=== PATIENT | female | born 1955 | race Hispanic/Latino ===

== ENCOUNTER 2025-04-14 10:51 | Outpatient (CLI) | payer BC ==
[2025-04-14 12:08] LABS: #Basophils 0.05 10x3/uL (0.0-0.2); #Eosinophils 0.17 10x3/uL (0.0-0.5); #Monocytes 0.37 10x3/uL (0.0-1.1); #Neutrophils 3.87 10x3/uL (1.5-8.4); %Basophils 0.7 % (0.0-2.0); %Eosinophils 2.4 % (0.0-6.0); %Lymphocytes 37.2 % (18.0-47.0); %Monocytes 5.2 % (0.0-10.0); %Neutrophils 54.1 % (40.0-75.0); Hematocrit 31.5 % (34.9-44.5); Hemoglobin 10.5 g/dL (12.0-15.5); Mean Corpuscular Hemoglobin 30.5 pg (27.0-33.0); Mean Corpuscular Volume 91.6 fL (81.6-98.3); Platelet Count 233 10x3/uL (150-450); Red Blood Cell (RBC) Count 3.44 10x6/uL (3.90-5.03); White Blood Cell (WBC) Count 7.15 10x3/uL (3.5-10.5)
[2025-04-14 12:44] LABS: Anion Gap 13 mmol/L (10-20); BUN (Urea Nitrogen) 18 mg/dL (9.8-20.1); Calc. Creatinine Clearance 0 mL/min (70-130); Calcium 9.1 mg/dL (7.8-10.44); Carbon Dioxide 24 mmol/L (23-31); Chloride 110 mmol/L (98-107); Glucose 113 mg/dL (80-115); Potassium 4.2 mmol/L (3.5-5.1); Sodium 143 mmol/L (136-145)
== END 2025-04-14 10:52 | disposition home or self-care (01) ==
LOC: CSHLAB 10:51
PROVIDERS: ATTEND Surgery
DX: Z01.818 Encounter for other preprocedural examination (principal); K43.9 Ventral hernia without obstruction or gangrene
CPT/HCPCS: 80048; 85025; 93005; 93010

== ENCOUNTER 2025-04-18 06:58 | Day surgery (SDC) | payer BC ==
[2025-04-14 11:21] VITALS: BMI 26.9
[2025-04-18] MEDS ORDERED: Rocuronium Bromide 10 MG/ML (10ML VIAL) ONE (08:15)
[2025-04-18] MEDS ORDERED: Lidocaine 1% PF 5 ML VIAL ONE (08:15)
[2025-04-18] MEDS ORDERED: PROPOFOL 20 ML ONE (08:16)
[2025-04-18] MEDS ORDERED: Lidocaine 4% PF 5 ML AMP ONE (08:18)
[2025-04-18] MEDS ORDERED: Sevoflurane 250 ML INH ANEST BOTTLE ONE (08:58)
[2025-04-18] MEDS ORDERED: Bupivacaine/Epinephrine 0.25% 30 ML VIAL ONE (08:58)
[2025-04-18] MEDS ORDERED: CEFAZOLIN 2 GM VIAL ONE (08:58)
== END 2025-04-18 12:03 | disposition home or self-care (01) ==
LOC: CSHSDC 06:58
PROVIDERS: ATTEND Surgery
PROC: 0WQF4ZZ Repair Abdominal Wall, Percutaneous Endoscopic Approach (ICD-10-PCS; principal; 2025-04-18)
DX: K43.9 Ventral hernia without obstruction or gangrene (principal); I10 Essential (primary) hypertension; E11.9 Type 2 diabetes mellitus without complications; Z79.899 Other long term (current) drug therapy
CPT/HCPCS: C1781; J1100; J2704; J3010; S2900